=== PATIENT | male | born 1985 | race Two or more races ===

== ENCOUNTER 2024-02-01 09:21 | Emergency (ER) | payer OTHER ==
[2024-02-01 09:36] VITALS: BP 137/79; PULSE 82; RESP 18; TEMP 98.7; BMI 39.1
== END 2024-02-01 11:00 | disposition home or self-care (01) ==
LOC: JERFT 09:21 → JER 09:21 → JERFT 11:00
DX: S61.210A Laceration without foreign body of right index finger without damage to nail, initial encounter (principal); W26.8XXA Contact with other sharp object(s), not elsewhere classified, initial encounter; Y99.0 Civilian activity done for income or pay
CPT/HCPCS: 99283-25